=== PATIENT | female | born 1945 | race Caucasian/White ===

== ENCOUNTER 2016-07-15 13:38 | Outpatient (CLI) | payer MEDICARE, OTHER ==
--- NOTE | 2016-07-16 17:03 | Mammography Report ---
DIGITAL SCREENING MAMMOGRAM: 07/15/2016 CLINICAL INDICATION: A 70-year-old nulliparous patient with history of benign biopsy for screening. COMPARISON: 05/2015, 12/2013, 09/2012, 07/2011, 06/2010, 07/2008, 02/2007 TECHNIQUE: Routine CC and MLO projections were obtained of the breasts. FINDINGS: The breasts again demonstrate scattered fibroglandular densities bilaterally. Coarse and punctate, typically benign calcifications are present. No suspicious masses, clustered microcalcific ations, or regions of architectural distortion are identified. IMPRESSION: BENIGN FINDINGS. RECOMMENDATION: Routine annual screening unless otherwise clinically indicated. BIRADS CATEGORY 2 - BENIGN FINDINGS. STANDARD QUALIFYING STATEMENTS 1. This examination was reviewed with the aid of Computer-Aided Detection (CAD). 2. A negative or benign imaging report should not delay biopsy if clinically suspicious findings are present. Consider surgical consultation if warranted. More than 5% of cancers are not identified by i maging. 3. Dense breasts may obscure an underlying neoplasm. JOB #: [id number] EXT JOB #:[id number]
== END 2016-07-15 13:39 | disposition home or self-care (01) ==
LOC: DI.N 13:38
PROVIDERS: ATTEND Family Medicine
DX: Z12.31 Encounter for screening mammogram for malignant neoplasm of breast (principal)
CPT/HCPCS: 77067

== ENCOUNTER 2016-11-18 08:00 | Outpatient (CLI) | payer MEDICARE, OTHER ==
[2016-11-18 13:24] LABS: BASOPHILS % (AUTO) 0.1 %; HCT - HEMATOCRIT 38.7 % (37.0-47.0); HGB - HEMOGLOBIN 12.8 g/dL (12.0-16.0); LYMPHOCYTES # (AUTO) 1.9 10^3/uL (1.5-3.5); LYMPHOCYTES % (AUTO) 14.2 %; MEAN CORPUSCULAR HEMOGLOBIN 28.5 pg (27.0-31.0); MEAN CORPUSCULAR HGB CONC 33.1 g/dL (32.0-36.0); MEAN CORPUSCULAR VOLUME 86.1 fL (81.0-99.0); MEAN PLATELET VOLUME 7.1 fL (7.9-10.8); MONOCYTES # (AUTO) 0.3 10^3/uL (0.0-1.0); MONOCYTES % (AUTO) 2.1 %; NEUTROPHILS # (AUTO) 11.2 10^3/uL (1.5-6.6); NEUTROPHILS % (AUTO) 83.6 %; NUCLEATED RED BLOOD CELLS AUTO 0.1 /100WBC; RED CELL DISTRIBUTION WIDTH 13.4 % (12.0-15.0); UNCORRECTED WHITE BLOOD COUNT 13.5 x10^3/uL; WHITE BLOOD COUNT 13.5 x10^3/uL (4.8-10.8)
[2016-11-18 13:49] LABS: ALBUMIN/GLOBULIN RATIO 1.3 (1.0-2.2); BILIRUBIN,TOTAL 0.5 mg/dL (0.2-1.0); BUN - BLOOD UREA NITROGEN 21 mg/dL (6-20); CALCIUM 9.5 mg/dL (8.5-10.3); CARBON DIOXIDE - CO2 24 mmol/L (21-32); CHLORIDE 105 mmol/L (101-111); CREATININE 0.7 mg/dL (0.4-1.0); GFR - MDRD 83 (>89); GLUCOSE 123 mg/dL (70-100); SODIUM 140 mmol/L (135-145); TOTAL PROTEIN 7.9 g/dL (6.7-8.2)
== END 2016-11-18 08:01 | disposition home or self-care (01) ==
LOC: LAB.WCP 08:00
PROVIDERS: ATTEND Family Medicine
DX: M25.511 Pain in right shoulder (principal); M54.30 Sciatica, unspecified side; M79.671 Pain in right foot
CPT/HCPCS: 36415; 80053; 84443; 85025; 85651; 86038; 86140

== ENCOUNTER 2017-01-06 09:48 | Outpatient (CLI) | payer MEDICARE, OTHER | END 2017-01-06 09:49 | disposition home or self-care (01) | LOC: SC 09:48 | PROVIDERS: ATTEND Nurse Practitioner Family | DX: G47.33 Obstructive sleep apnea (adult) (pediatric) (principal) | CPT/HCPCS: 99214; G0463; 99212 ==

== ENCOUNTER 2017-07-20 16:02 | Outpatient (CLI) | payer MEDICARE, OTHER ==
--- NOTE | 2017-07-25 11:55 | Mammography Report ---
DIGITAL SCREENING MAMMOGRAM: 07/20/2017 CLINICAL INDICATION: A 71-year-old nulliparous patient with family history of breast cancer, history of benign cyst aspiration, for screening. COMPARISON: 07/2016, 05/2015, 12/2013, 09/2012, 07/2011, 06/2010. TECHNIQUE: Routine CC and MLO projections were obtained of the breasts. FINDINGS: The breasts again demonstrate scattered fibroglandular densities bilaterally. Coarse and punctate, typically benign calcifications are present. No suspicious masses, clustered microcalcifications, or regions of architectural distortion are identified. IMPRESSION: BENIGN FINDINGS. RECOMMENDATION: Routine annual screening unless otherwise clinically indicated. BI-RADS CATEGORY 2 - BENIGN FINDINGS. STANDARD QUALIFYING STATEMENTS: 1. This examination was reviewed with the aid of Computer-Aided Detection (CAD). 2. A negative or benign imaging report should not delay biopsy if clinically suspicious findings are present. Consider surgical consultation if warranted. More than 5% of cancers are not identified by imaging. 3. Dense breasts may obscure an underlying neoplasm. TD: 07/25/2017 11:41
== END 2017-07-20 16:03 | disposition home or self-care (01) ==
LOC: DI.N 16:02
PROVIDERS: ATTEND Family Medicine
DX: Z12.31 Encounter for screening mammogram for malignant neoplasm of breast (principal); Z80.3 Family history of malignant neoplasm of breast
CPT/HCPCS: 77067

== ENCOUNTER 2017-10-06 09:05 | Outpatient (CLI) | payer MEDICARE, OTHER ==
[2017-10-06 13:15] LABS: BASOPHILS % (AUTO) 0.6 %; EOSINOPHILS # (AUTO) 0.1 10^3/uL (0.0-0.7); HGB - HEMOGLOBIN 13.1 g/dL (12.0-16.0); LYMPHOCYTES # (AUTO) 2.5 10^3/uL (1.5-3.5); LYMPHOCYTES % (AUTO) 39.8 %; MEAN CORPUSCULAR HEMOGLOBIN 29.4 pg (27.0-31.0); MEAN CORPUSCULAR HGB CONC 33.7 g/dL (32.0-36.0); MEAN CORPUSCULAR VOLUME 87.4 fL (81.0-99.0); MEAN PLATELET VOLUME 7.1 fL (7.9-10.8); MONOCYTES # (AUTO) 0.4 10^3/uL (0.0-1.0); MONOCYTES % (AUTO) 6.8 %; NEUTROPHILS # (AUTO) 3.2 10^3/uL (1.5-6.6); NEUTROPHILS % (AUTO) 50.8 %; PLT - PLATELET COUNT 318 10^3/uL (130-450); RED BLOOD COUNT 4.45 10^6/uL (4.20-5.40); RED CELL DISTRIBUTION WIDTH 14.2 % (12.0-15.0); WHITE BLOOD COUNT 6.3 x10^3/uL (4.8-10.8)
[2017-10-06 13:40] LABS: ALBUMIN 3.9 g/dL (3.2-5.5); ALBUMIN/GLOBULIN RATIO 1.2 (1.0-2.2); ALKALINE PHOSPHATASE 74 IU/L (42-121); ALT ALANINE AMINOTRANSFERASE 18 IU/L (10-60); AST ASPARTATE AMINOTRANSFERASE 18 IU/L (10-42); BILIRUBIN,TOTAL 0.8 mg/dL (0.2-1.0); BUN - BLOOD UREA NITROGEN 17 mg/dL (6-20); CALCIUM 9.1 mg/dL (8.5-10.3); CARBON DIOXIDE - CO2 28 mmol/L (21-32); CHLORIDE 103 mmol/L (101-111); CHOL/HDL RATIO 4.2 (<4.4); CHOLESTEROL 226 mg/dL; CREATININE 0.9 mg/dL (0.4-1.0); GFR - MDRD 62 (>89); GLUCOSE 101 mg/dL (70-100); HDL CHOLESTEROL 54 mg/dL; LDL CHOLESTEROL,CALCULATED 148 mg/dL; LDL/HDL RATIO 2.7 (<4.4); SODIUM 138 mmol/L (135-145); TOTAL PROTEIN 7.1 g/dL (6.7-8.2); VLDL CHOLESTEROL 24 mg/dL
== END 2017-10-06 09:06 | disposition home or self-care (01) ==
LOC: LAB.WCP 09:05
PROVIDERS: ATTEND Family Medicine
DX: M25.50 Pain in unspecified joint (principal); E78.5 Hyperlipidemia, unspecified; E55.9 Vitamin D deficiency, unspecified; R20.2 Paresthesia of skin; K62.5 Hemorrhage of anus and rectum; M81.0 Age-related osteoporosis without current pathological fracture; K30 Functional dyspepsia
CPT/HCPCS: 36415; 80053; 80061; 82306; 83721; 84443; 85025

== ENCOUNTER 2017-12-07 15:08 | Outpatient (CLI) | payer MEDICARE, OTHER | END 2017-12-07 15:09 | disposition home or self-care (01) | LOC: SC 15:08 | PROVIDERS: ATTEND Nurse Practitioner Family | DX: G47.33 Obstructive sleep apnea (adult) (pediatric) (principal) | CPT/HCPCS: 99214; G0463; 99212 ==

== ENCOUNTER 2018-08-03 10:05 | Outpatient (CLI) | payer MEDICARE, OTHER ==
--- NOTE | 2018-08-04 11:15 | Mammography Report ---
Reason: SCREENING MAMMO Procedure Date: 08/03/2018 Accession Number: [id number] / [id number] Procedure: MGN - Screening Mammo Dig Bilat CPT Code: FULL RESULT: EXAM: Screening Mammo Dig Bilat DATE: 08/03/2018 10:40 AM CLINICAL HISTORY: Routine screening; mother with breast cancer TECHNIQUE: (B) - Bilateral CC and MLO views were obtained. COMPARISON: 07/20/2017, 07/15/2016, 05/23/2015 and 12/07/2013 PARENCHYMAL PATTERN: (A) - The breasts demonstrate scattered fibroglandular densities bilaterally. FINDINGS: No significant interval change. There are no suspicious masses, calcifications, or areas of distortion. IMPRESSION: Negative examination. BI-RADS category 1. RECOMMENDATION: (ANNUAL) - Recommend routine annual screening mammography. BI-RADS CATEGORY: (1) - Negative. STANDARD QUALIFYING STATEMENTS: 1. This examination was not reviewed with the aid of Computer-Aided Detection (CAD). 2. A negative or benign imaging report should not preclude biopsy if clinically suspicious findings are present. 3. Dense breasts may obscure an underlying neoplasm. 4. This examination was reviewed without the aid of 3D breast imaging (tomosynthesis).
== END 2018-08-03 10:06 | disposition home or self-care (01) ==
LOC: DI.N 10:05
DX: Z12.31 Encounter for screening mammogram for malignant neoplasm of breast (principal); Z80.3 Family history of malignant neoplasm of breast
CPT/HCPCS: 77067

== ENCOUNTER 2018-12-26 10:45 | Outpatient (CLI) | payer MEDICARE, OTHER ==
[2018-12-26 11:46] VITALS: BP 122/80
--- NOTE | 2018-12-26 11:46 | SLEEP CARE CONSULTATION ---
Information from patient questionnaire entered by Kenya Faye. I have reviewed and concur with the information entered by Kenya Faye. This document represents the service I personally performed and the decisions made by me, Shelley Berrios, RN, MSN, [employer]. History of Present Illness Previous diagnosis: Moderate, Obstructive Sleep Apnea-Hypopnea Syndrome AHI: 24.2 Reason for CPAP/BiPAP follow up: annual Equipment type: CPAP Equipment obtained from: [facility] (continues to have problems getting supplies) Mask style: Nasal Mask brand: Respironics Backup mask available: No (keep current mask as spare ) Last cushion change: 6 weeks ago Prior sleep studies: Yes Year and Where: 2010 [facility] CPAP Compliance Data - Data Reviewed with Patient Average duration of nightly device use: 6h 53m Compliance rate %: 97.8 Current pressure setting (cmH2O): 6-9 Humidity settin Heated hose settin Average residual AHI: 3.3 Average large leak: 5 minutes Subjective Missed days of use due to: reports: illness Patient concerns: reports: air blowing in eyes, dry mouth, nose, throat (*dry mouth), other (headgear velcro wears out and she has been trying adaptors to keep on. ). denies: aerophagia, mask discomfort, mask leak noise, condensation in mask/hose, nasal congestion (every morning ), epistaxis Observed to snore while using device: No Current pressure setting perceived as: comfortable On therapy, patient: reports: sleeping better, awakening more refreshed, being more awake and alert during the day, more rested overall. denies: drowsiness while driving Initial [place] Sleepiness Scale score: 5 Current [place] Sleepiness Scale score: 2 Allergies and Home Medications Known drug allergies: No Home medication list reviewed: Yes (medications being adjusted for tinnitus. ) Allergy and home medication list: Medication Name (generic/name brand) Strength & Dosage Amitriptyline HCL 20 mg 1 tablets by mouth every night Magnesium Chloride Solution 1 tablet by mouth daily Omeprazole 20mg 1 tablet by mouth every morning Review of Systems Review of systems same as previous: No (tinnitus worsening and under evaluation. ) Physical Exam Blood Pressure: 122/80 Cuff size: long Heart Rate: 88 O2 Saturation: 96 Height: 5 ft 4 in Weight: 191 lb 3.2 oz Weight change since last visit: gained 12 pounds - but exercising more and less inches Body Mass Index: 32.8 BMI Classification: Obesity Class 1 Impression and Plan 1. Obstructive Sleep Apnea-Hypopnea Syndrome, moderate, with good treatment compliance and good apnea control. On CPAP therapy, the patient has better sleep quality and is more rested overall. For her headgear concerns, I discussed how she can add new velcro or buy headgear online out of pocket. Insurance will only replace every 6 months. Supply replacement schedule given for reference. For her supply concerns, I discussed how she can transfer to a new DME that is available in both living areas [facility] and [place]. My staff will inform her of her choices. She was with [employer] before and had good service and would like to use them again. To reduce mask leaks when she sleeps on her side, I showed her a sample CPAP pillow. This and other styles can be bought online for about $60. When she cannot use CPAP due to cold, she is advised to avoid supine sleep with pillow positioning as her apnea is more severe supine. For oral dryness, she was shown how to adjust humidity and heated hose with rationale for different weather. For increased allergy nasal congestion in [place], the higher humidity will also help as well as changing disposable filter more frequently. Patient's apnea severity and rationale for treatment to reduce apnea, improve sleep quality and reduce cardiovascular and cerebrovascular events was reviewed. * Continue autoCPAP pressure at 6-9 cmH2O * Consider CPAP pillow * Adjust mask headgear as discussed. * adjust humidity * Notify me if snoring with mask or feeling that the pressure is too much or too little * Attempt to lose weight * Transfer to new DME * Return for follow up in 1 year , or sooner if concerns arise I spent 100% of this 30 minute visit face to face with the patient with greater than 50% of this was spent time counseling the patient and coordination of care.
== END 2018-12-26 10:46 | disposition home or self-care (01) ==
LOC: SC 10:45
PROVIDERS: ATTEND Nurse Practitioner Family
DX: G47.33 Obstructive sleep apnea (adult) (pediatric) (principal); E66.9 Obesity, unspecified; Z68.32 Body mass index [BMI] 32.0-32.9, adult
CPT/HCPCS: 99214; G0463; 99212

== ENCOUNTER 2019-10-11 11:31 | Day surgery (SDC) | payer MEDICARE, OTHER ==
[2019-10-11] MEDS ORDERED: fentaNYL 250 MCG/5 ML VIAL IVP ONE (11:32)
[2019-10-11] MEDS ORDERED: MIDAZOLAM 2 MG/2 ML VIAL IVP ONE (11:32)
[2019-10-11] MEDS ORDERED: LACTATED RINGERS 1,000 ML IV ONE ×2 (11:34→15:15)
[2019-10-11] MEDS ORDERED: LIDO GARGLE 30 ML BOTTLE ONE (14:39)
[2019-10-11] MEDS ORDERED: BENZOCAINE/TETRACAINE/BUTAMBEN 20 GM TOP ONE (14:40)
[2019-10-11] MEDS ORDERED: LIDO GARGLE 30 ML BOTTLE PO ONE (14:40)
[2019-10-11 16:26] VITALS: BP 115/64
== END 2019-10-11 11:32 | disposition home or self-care (01) ==
LOC: SDS 11:31
PROVIDERS: ATTEND Surgery
PROC: 0DB68ZX Excision of Stomach, Via Natural or Artificial Opening Endoscopic, Diagnostic (ICD-10-PCS; 2019-10-11)
PROC: 0DB38ZX Excision of Lower Esophagus, Via Natural or Artificial Opening Endoscopic, Diagnostic (ICD-10-PCS; 2019-10-11)
PROC: 0DB48ZX Excision of Esophagogastric Junction, Via Natural or Artificial Opening Endoscopic, Diagnostic (ICD-10-PCS; 2019-10-11)
PROC: 0DB68ZZ Excision of Stomach, Via Natural or Artificial Opening Endoscopic (ICD-10-PCS; 2019-10-11)
PROC: 0DJD8ZZ Inspection of Lower Intestinal Tract, Via Natural or Artificial Opening Endoscopic (ICD-10-PCS; principal; 2019-10-11 12:45)
PROC: 0DB98ZX Excision of Duodenum, Via Natural or Artificial Opening Endoscopic, Diagnostic (ICD-10-PCS; 2019-10-11 12:45)
DX: Z12.11 Encounter for screening for malignant neoplasm of colon (principal); K21.9 Gastro-esophageal reflux disease without esophagitis; K64.8 Other hemorrhoids; Q43.8 Other specified congenital malformations of intestine; K31.7 Polyp of stomach and duodenum; Z80.0 Family history of malignant neoplasm of digestive organs
CPT/HCPCS: 43239; 43251; A9270; G0105; J7120

== ENCOUNTER 2019-11-28 08:48 | Outpatient (CLI) | payer MEDICARE, OTHER ==
[2019-11-28 09:38] VITALS: BP 148/70
--- NOTE | 2019-11-28 09:38 | SLEEP CARE CONSULTATION ---
Information from patient questionnaire entered by Shalodna Meza. I have reviewed and concur with the information entered by Shalonda Meza. This document represents the service I personally performed and the decisions made by me, Shelley Berrios, RN, MSN, TECHN[employer]. History of Present Illness Service Date and Time: 11/28/2019 0848 Previous diagnosis: Moderate, Obstructive Sleep Apnea-Hypopnea Syndrome AHI: 24.2 Reason for follow up: annual (Last seen 12/2018) Equipment type: CPAP Equipment obtained from: [employer] Mask style: Nasal Backup mask available: Yes (old mask) Last cushion change: 1 month ago Prior sleep studies: Yes Year and Where: 2010 [facility] Type of Sleep Study: Polysomnography HPI additional information: Currently bedtime 10:30 - 11;30 pm It takes 2 hours to fall sleep. During this time she tosses and turns and looks at the clock through the night She is also experiencing sciatica pain - uses Tilt table and pain pills - seen in May for evaluation and informed needs surgery lower back for spinal stenosis. She plans on completing once she moves. However, her packing aggravates her symptoms. She moves next week to [place]. She states both her and spouse arthritic pain is less when in that climate. She uses her CPAP while in bed when trying to go to sleep. She has started use of CBD oil before bed but minimal benefit. She wakes up 6-7am She uses an alarm about 50% of the time to wake for her walking routine. Sleep Study - Results Prior sleep studies: Yes Year and Where: 2010 [facility] CPAP Compliance Data - Data Reviewed with Patient Average duration of nightly device use: 6 h 30 min Compliance rate %: 96.7 Current pressure setting (cmH2O): 6-9 Humidity settin Heated hose settin Average residual AHI: 3.4 Average large leak: 7 min 44 sec Subjective Patient concerns: reports: air blowing in eyes, mask leak noise, dry mouth, nose, throat, other (insomnia -the past 6 months both going and maintaining sleep due to things [facility]). denies: aerophagia, mask di scomfort, nasal congestion, epistaxis Observed to snore while using device: No Current pressure setting perceived as: comfortable On therapy, patient: reports: awakening more refreshed, being more awake and alert during the day, more rested overall. denies: sleeping better (due to pain and things on mind ), drowsiness while driving Initial [place] Sleepiness Scale score: 5 (in 2011) Current [place] Sleepiness Scale score: 1 Allergies and Home Medications Home medication list reviewed: No (Magnesium Blue started with good muscle benefit and amitryptaline stopped, ) Allergy and home medication list: Also added EMU oil topically for muscle pain with relief. Review of Systems Review of systems same as previous: No (right and left sciatica - evaluation in process) Physical Exam Blood Pressure: 148/70 (packing for move) Cuff size: long Heart Rate: 70 O2 Saturation: 98 Height: 5 ft 4 in Weight: 191 lb 6.4 oz Weight change since last visit: gained 12 pounds Body Mass Index: 32.8 BMI Classification: Obese Impression and Plan 1. Obstructive Sleep Apnea-Hypopnea Syndrome, moderate, with good treatment compliance and good apnea control. On CPAP therapy, the patient has better sleep quality and is more rested overall. Oral dryness can be reduced by adjusting humidity setting higher or heated hose lower or by adjusting both settings. Verbal instructions given on how to change humidity and heated hose settings with rationale explaining why to change. Oral dryness can also be reduced by reducing mask leaks. Patient advised that chronic oral dryness can affect dental health and advised to follow up with dentist. In addition, there are oral dryness products that can be used to reduce dryness such as Biotene products, Dry mouth rinse and Xylomelts. Patient to discuss best option with dentist. Mask leaks and comfort for lateral recumbent position can be reduced with use of a CPAP pillow is advised and can check online. She is also advised to change her mask leaks more often. Patient informed of process to seek new referral to new sleep provider after establishes with new PCP for annual follow up and continuance of care. Patient's apnea severity and rationale for treatment to reduce apnea, improve sleep quality and reduce cardiovascular and cerebrovasc ular events was reviewed. She has gained weight since Covid 19 pandemic and is aware to reduce her weight for overall health and apnea reduction. 2. Insomnia due to things on mind and pain. She was counseled how her staying in bed and tossing and turning until falling asleep can also increased alertness and frustration to fall asleep. She is instead to leave bedroom, write out concerns (, ie the list to do for moving,) as a release and then engage in a quiet non-electronic activity such as reading a relaxing book of stories etc . She is only to return to bed when sleepy. If awakens again, repeat this process. The goal is to associate the bed with sleep and not frustration to get to sleep. Next, she is to set alarm for a consistent wake time and cover the clock. In addition, she should not go to bed unless sleepy so her bedtime is probably about 11:30 instead of 10:30pm. She likes to wake about 7;30-8am. I explained how her wake up time determines her bedtime. Additionally too much time spent in bed can cause more sleep disruption as most people only need 7-9 hours of sleep. Naps are to be avoided unless overcome by sleepiness. Then naps are to be restricted to one hour and before 3 pm so as not to interfere with nighttime sleep. Most caffeine is to be stopped after lunch as it has a 6 hour half life and reduce sleep latency and efficiency. Which she has already done. In addition, it is important to have a relaxing ritual about 30-60 minutes before bedtime to allow the mind/body transition from an active day to sleep. Her watching of a comedy is good. But the lighting of TV should be low. Her pain is less in [place] where she is moving and this is reason for move. So hopefully her sleep will be less disrupted after her move and settling into her new home. She is also seeking further evaluation of back pain with a specialist seen last May. [facility] How to Sleep Better pamphlet given and reviewed. A sleep diary will be completed for the next 2 weeks to assist implementation of recommendations and for further evaluation of sleep concerns. * Continue auto CPAP pressure at 6-9 cmH2O * Implement methods to reduce insomnia. * Notify me if snoring with mask or feeling that the pressure is too much or too little * Attempt to lose weight * Call this office if any problems using CPAP * Return for follow up as needed before her move. Visit Type: In Office Time Spent with Patient (minutes): 37 Provider Statement: I spent 100% of the Face to Face Visit with the patient with greater than 50% spent counseling the patient and coordination of care.
== END 2019-11-28 08:49 | disposition home or self-care (01) ==
LOC: SC 08:48
PROVIDERS: ATTEND Nurse Practitioner Family
DX: G47.33 Obstructive sleep apnea (adult) (pediatric) (principal); G47.00 Insomnia, unspecified; E66.9 Obesity, unspecified; Z68.32 Body mass index [BMI] 32.0-32.9, adult
CPT/HCPCS: 99214; G0463; 99212